=== PATIENT | male | born 1970 | race Caucasian/White ===

== ENCOUNTER 2022-09-20 01:23 | Emergency (ER) | payer OTHER ==
[~2022-09-20] VITALS: Ht 175.3 cm; Wt 96.0 kg
[2022-09-20 01:23] VITALS: BP 125/86
[2022-09-20] MEDS ORDERED: LIDOCAINE 1% HCL (LOCAL ANESTH.) INJ 20ML MDV ID ONE (02:45)
[2022-09-20] MEDS ORDERED: CLIN300C8 PO (02:47)
== END 2022-09-20 04:09 | disposition home or self-care (01) ==
LOC: ER 01:23
DX: S61.412A Laceration without foreign body of left hand, initial encounter (principal); W18.41XA Slipping, tripping and stumbling without falling due to stepping on object, initial encounter; Y93.89 Activity, other specified; Y92.89 Other specified places as the place of occurrence of the external cause; Y99.8 Other external cause status
CPT/HCPCS: 12002; 99283; J2001